=== PATIENT | female | born 1965 | race Two or more races ===

== ENCOUNTER 2021-06-20 05:35 | Day surgery (SDC) | payer OTHER ==
[~2021-06-20 05:35] MED LIST: LEVOTHYROXINE25 MCG PO; ZOCOR20 MG PO
[2021-06-20] MEDS ORDERED: PERCOCET 5-3251 EACH PO (08:42)
== END 2021-06-20 13:20 | disposition home or self-care (01) ==
LOC: CIR.AMB 05:35
PROVIDERS: ATTEND Surgery
DX: K64.2 Third degree hemorrhoids (principal); K62.89 Other specified diseases of anus and rectum; E03.9 Hypothyroidism, unspecified